=== PATIENT | male | born 1985 ===

== ENCOUNTER 2020-08-06 18:37 | Outpatient (REF) | payer MEDICAID, SELFPAY ==
[2020-08-09 14:08] LABS: COVID-19 RT-PCR UVMMC Result Negative (Negative)
== END 2020-08-06 18:57 ==
LOC: NCHCN 18:37
PROVIDERS: Visit Provider Physician Assistant Medical
DX: J06.9 Acute upper respiratory infection, unspecified (principal)
CPT/HCPCS: U0003

== ENCOUNTER 2020-10-26 18:17 | Outpatient (REF) | payer MEDICAID, SELFPAY ==
[2020-10-26 18:47] LABS: ALT 54 U/L (16-63); AST 25 U/L (15-37); Albumin 3.7 g/dL (3.4-5.0); Alkaline Phosphatase 124 U/L (46-116); BUN 18 mg/dL (7-18); Bilirubin, Total 0.3 mg/dL (0.2-1.0); CREATININE 0.9 mg/dL (0.70-1.30); Calcium 8.9 mg/dL (8.5-10.1); Chloride 103 mmol/L (98-107); Glucose 105 mg/dL (74-106); Magnesium 2.1 mg/dL (1.8-2.4); Potassium 4.2 mmol/L (3.5-5.1); Sodium 141 mmol/L (136-145); Total Protein 7.5 g/dL (6.4-8.2)
== END 2020-10-26 18:18 | disposition home or self-care (01) ==
LOC: NCHCN 18:17
PROVIDERS: Visit Provider Family Medicine
DX: E66.01 Morbid (severe) obesity due to excess calories (principal); G47.30 Sleep apnea, unspecified
CPT/HCPCS: 80053; 83735